=== PATIENT | male | born 1955 | race Caucasian/White ===

== ENCOUNTER 2024-10-20 08:13 | Inpatient (IN) | payer OTHER ==
--- NOTE | 2024-10-13 15:01 | ELECTROCARDIOGRAPH REPORT ---
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
[2024-10-13 15:57] LABS: BILIRUBIN,URINE NEGATIVE (Neg); CLARITY,URINE SLIGHTLY CLOUDY (Clear); COLOR,URINE YELLOW (Yellow); GLUCOSE, URINE NEGATIVE (Neg); KETONES,URINE NEGATIVE (Neg); LEUKOCYTE ESTERASE ,URINE NEGATIVE (Neg); NITRITES, URINE POSITIVE (Neg); OCCULT BLOOD,URINE SMALL (Neg); PROTEIN,URINE NEGATIVE (Neg)
[2024-10-13 15:59] LABS: BASOPHILS # (AUTO) 0.1 X10'3 (0-0.2); EOSINOPHILS # (AUTO) 0.1 X10'3 (0-0.9); MEAN CORPUSCULAR HEMOGLOBIN 35.2 PG (27.0-31.0); MEAN CORPUSCULAR VOLUME 100.6 FL (78-98); MEAN PLATELET VOLUME 8.3 FL (7.4-10.4); MONOCYTES # (AUTO) 0.7 X10'3 (0-0.9); MONOCYTES % (AUTO) 11.8 % (2-12); NEUTROPHILS # (AUTO) 4.2 X10'3 (1.8-7.7); NEUTROPHILS % (AUTO) 68.2 % (42-75); PRE OP HEMATOCRIT 44.6 % (42.0-52.0); PRE OP HEMOGLOBIN 15.6 g/dL (14.0-17.9); PRE OP PLATELET COUNT 227 X10'3 (140-440); PRE OP WHITE BLOOD COUNT 6.2 10'3 (4.8-10.8); RED BLOOD COUNT 4.43 X10'6 (4.70-6.10); RED CELL DISTRIBUTION WIDTH 14.5 % (11.5-14.5)
--- NOTE | 2024-10-13 15:59 | RADIOLOGY REPORT ---
DI CHEST,TWO VIEWS CLINICAL HISTORY: PREOP COMPARISON: None TECHNIQUE: Frontal and lateral view of the chest was obtained FINDINGS: Lines and Tubes: None Lungs: No focal consolidation. Pleura: No effusion. No pneumothorax. Cardiomediastinal contours: Unremarkable Bones: No acute osseous abnormality. IMPRESSION: No acute cardiopulmonary disease.
[2024-10-13 16:02] LABS: UA COLLECTION TYPE CLN CATCH MIDSTREAM
[2024-10-13 16:04] LABS: BACTERIA,URINE 3+ /HPF (Neg); MUCUS STRANDS FEW /LPF (Neg); SQUAMOUS EPITHELIAL CELL,UR FEW /LPF (FEW)
[2024-10-13 16:14] LABS: PRE OP PROTIME 10.5 SECONDS (9.0-12.0)
[2024-10-13 16:40] LABS: ALBUMIN 3.9 G/DL (3.4-5.0); ALBUMIN/GLOBULIN RATIO 1.2 (1.1-1.5); ALKALINE PHOSPHATASE 110 IU/L (46-116); BLOOD UREA NITROGEN 14 MG/DL (7-18); BUN/CREATININE RATIO 16.5 (10.0-20.0); CALCIUM 8.8 MG/DL (8.5-10.1); CHLORIDE 107 MMOL/L (99-107); CREATININE 0.85 MG/DL (0.60-1.10); PRE OP ALT 38 U/L (30-65); PRE OP ANION GAP 8 (8-16); PRE OP AST 25 U/L (10-37); PRE OP BILIRUB, TOTAL 0.8 MG/DL (0.0-1.0); PRE OP GLUCOSE 87 MG/DL (70-104); PRE OP POTASSIUM 4.6 MMOL/L (3.4-5.1); PRE OP SODIUM 144 MMOL/L (135-145); TOTAL CARBON DIOXIDE 29.3 MMOL/L (24-32); TOTAL PROTEIN 7.2 G/DL (6.4-8.2); eGFR 89 ML/MIN
[2024-10-13 17:11] LABS: HEMOGLOBIN A1C 5.3 % (4.5-6.2)
[2024-10-20] VITALS (29 sets, daily range): BP systolic 114–171; BP diastolic 72–106; PULSE 55–112; RESP 10–25; TEMP 97.6–98.6; O2SAT 91–98
[~2024-10-20] VITALS: Ht 175.3 cm; Wt 109.8 kg
[2024-10-20] MEDS: ceFAZolin 2gm/dext,iso 50mL 50 ML IV ONE (05:30)
[~2024-10-20 08:13] MED LIST: ATOR-429 PO; CHOL50004 PO; DABI150C PO; DICL100G59 TOP; FLUT16SP BOTHNARES; LIDO700A47 TOP; LORA10TA7 PO; LOSA-415 PO; MERC50TA2 PO; MUPI1OIN5 TOP; NALO4SPR22; OMEP40CA21 PO; PREG300C20 PO; REMICADE IV; TIRZ15PE SQ; TURMERIC/GINGER PO; VENL75CA61 PO; ondansetron/PF 4mg/2ml inj IV PRN
[2024-10-20] MEDS: famotidine 20mg tablet PO ONE (09:02)
[2024-10-20] MEDS: VANCOMYCIN/H2O 1.5g/300mL PB 300 ML IV ONE (09:03)
[2024-10-20] MEDS: ringers solution, lacted 1,000 ML IV SCH ×2 (09:03→10:25)
[2024-10-20] MEDS ORDERED: morphine 4 MG/ML inj SYRINge IV PRN (10:25)
[2024-10-20] MEDS ORDERED: labetalol 20mg/4ml (5mg/ml) syringe IV PRN ×2 (10:25→11:50)
[2024-10-20] MEDS ORDERED: ondansetron/PF 4mg/2ml inj IV PRN ×2 (10:25→11:50)
[2024-10-20] MEDS ORDERED: HYDROmorphone/PF 0.2 MG/ML SYRINGE IV PRN ×2 (10:25)
[2024-10-20] MEDS ORDERED: iohexol 350MG/ML 100ml bottle IV ONE (10:33)
[2024-10-20] MEDS ORDERED: sevoflurane 250ml liquid IH ONE (10:41)
[2024-10-20] MEDS ORDERED: midazolam 1 mg/ML 2ml injection ONE (10:46)
[2024-10-20] MEDS ORDERED: fentaNYL/PF 50MCG/1 ML 2ML syringe ONE (10:46)
[2024-10-20] MEDS ORDERED: propofol inj 20 ML IV ONE (11:46)
[2024-10-20] MEDS ORDERED: rocuronium 10mg/ml inj IV ONE (11:46)
[2024-10-20] MEDS ORDERED: neostigmine methylsulfate 1 MG/ML 10ml vial ONE (11:46)
[2024-10-20] MEDS ORDERED: HYDROcodone/acetaminophen 5mg/325mg tablet PO PRN (11:50)
[2024-10-20] MEDS ORDERED: potassium CL 10mEq/100ml bag 100 ML IV PRN (11:50)
[2024-10-20] MEDS ORDERED: pantoprazole 40mg Tablet.DR PO PRN (11:50)
[2024-10-20] MEDS ORDERED: potassium Cl 20mEq/100mL bag 100 ML IV PRN (11:50)
[2024-10-20] MEDS ORDERED: magnesium sulf-water 2g/50mL 50 ML IV PRN (11:50)
[2024-10-20] MEDS ORDERED: potassium Cl 20 mEq SR tablet PO PRN (11:50)
[2024-10-20] MEDS ORDERED: potassium Cl 40MEQ/1/2NS 520ml 520 ML IV PRN (11:50)
[2024-10-20] MEDS ORDERED: hydrALAZINE 20mg/ml inj. IV PRN (11:50)
[2024-10-20] MEDS ORDERED: docusate sod 100mg capsule PO PRN (11:50)
[2024-10-20] MEDS ORDERED: acetaminophen 325mg tablet PO PRN (11:50)
[2024-10-20] MEDS ORDERED: magnesium sulf-water 4G/100mL 100 ML IV PRN (11:50)
[2024-10-20] MEDS: normal saline 1000ml 1,000 ML IV SCH (11:50)
[2024-10-20] MEDS ORDERED: potassium Cl 40MEQ/270ML bag 250 ML IV PRN (11:50)
[2024-10-20] MEDS ORDERED: diphenhydrAMINE 25mg capsule PO PRN (11:50)
[2024-10-20] MEDS ORDERED: ALPRAZolam 0.25mg tablet PO PRN (11:50)
[2024-10-20] MEDS ORDERED: proCHLORperazine 10 MG/2 ml inj IV PRN (11:50)
[2024-10-20] MEDS ORDERED: glycopyrrolate 0.2mg/ml inj ONE (11:54)
[2024-10-20] MEDS ORDERED: heparin 1,000unit/ml 10ml vial 10 ML ONE (11:54)
--- NOTE | 2024-10-20 11:55 | OPERATIVE REPORT ---
Operative Report Providers to CC CC: Leonard Quintana MD; DELANEY CHAMBERS MD ~ Date of Procedure: Oct 20, 2024 Pre-Operative Diagnosis: Atrial Fibrillation with high bleeding risk Post-Operative Diagnosis SAME as PRE-Op Procedure Performed 1. Transseptal Puncture via NAOMI guidance 2. Left Atrial Appendogram 3. Left Atrial Appendage closure with 31mm Watchman FLX Pro Pro Device 4. Ultrasound guided access, right Femoral Vein Surgeon: Dixie Chambers MD Sack Keeper n/a Anesthesiologist: Forrest Lopez Type of Anesthesia: General Findings: Left Atrial appendage amenable to percutaneous closure. Complications None Prosthetics\\Implants used: 31mm Watchman Flx Pro Estimated Blood Loss: Minimal Specimen Removed: None Description of Procedure: The patient was brought to the clinical lab scientist in a fasting state. They underwent General anesthesia. Ultrasound was used to guide access to the right femoral vein where two aretha-cross Perclose devices were placed and upsized to an 8Fr sheath. Heparin was given to maintain an ACT over 250 seconds. An 0.035" wire was advanced into the SVC. The 8Fr sheath was then removed and the 8.5Fr VersaCross Transseptal sheath was advanced into the SVC. The RF wire was then advanced to the tip of the sheath/dilator. Using NAOMI guidance, appropriate position of the tip of the sheath was determined and using an energized wire tip, advanced into the left atrium. The sheath and dilator were then advanced over the wire into the left atrium. Over the wire, the Versacross sheath was removed and exchanged for the Watchman Sheath. The wire and dilator were then removed and exchanged for a 5Fr pigtail catheter which was placed into the left atrial appendage and an appendogram performed in the AKERS-Caudal position. There, ACT was confirmed to be therapeutic. The Watchman sheath was t hen advanced into the left atrial appendage over the pigtail catheter. Once appropriate position was determined, the pigtail was removed, the 31mm Watchman FLX device and delivery system were advanced into the tip of the sheath. The delivery system was advanced until an appropriate FLX ball was formed. The guide was then retracted and the Watchman device was unsheathed will full deployment in the appendage. Repeat imaging confirmed a slightly proximal placement of the device so it was recaptured and repositioned in the superior lobe of the appendage where it was again unsheathed. Next, PASS criteria was performed confirming adequate positioning and anchoring(using a tug-test), sizing showing adequate compression, and no significant leak around the device. Another Appendogram was performed confirming placement. The device was then released from the delivery system. The guide and delivery system were removed and the perclose tied as well as the [id number]-[id number]-[id number] suture, ensuring adequate hemostasis. Mean LA Presssure: 25mmHg Contrast: 20cc ACT: 233(+1k)s Device Compression: 23-30% RESULTS: 1. Successful Left-Atrial Appendage closure with a 31mm Watchman FLX Pro device 2. Right Femoral Vein access, closed with Perclose x 2 and Guqshb-oo-Kgfhe suture 3. Resume Pradaxa 150mg BID x 45days with repeat imaging at that time. If sealed without evidence of device related thrombosis, can stop OAC and start ASA 81mg QD indefinitely, plavix 75mg QD x 6 months. They will be watched in the recovery area until stable, then transferred to the telemetry at that time. DIXIE CHAMBERS MD Oct 20, 2024 11:55
[2024-10-20] MEDS ORDERED: LIDOcaine 5% patch TP PRN (12:00)
--- NOTE | 2024-10-20 12:28 | ELECTROCARDIOGRAPH REPORT ---
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 SERGE Lobo Measurements Intervals [place] Rate: 59 P: 0 [place]: 0 QRS: 60 QRSD: 89 T: 53 QT: 420 QTc: 416 Interpretive Statements Atrial fibrillation Low voltage, extremity leads Electronically Signed On 10-21-2024 19:15:[address] SERGE Lobo Please click the below link to view image of tracing.
[2024-10-20] MEDS: hydrALAZINE 20mg/ml inj. IV PRN (14:04)
[2024-10-20] MEDS: morphine 2 MG/ML inj. syringe IV PRN (14:43)
[2024-10-20] MEDS: sod chloride 0.9% 10ml flush syringe IV SCH (16:50)
[2024-10-20] MEDS: ceFAZolin 1GM/D5W- ADD-VANTAGE 50 ML IV SCH (16:50)
--- NOTE | 2024-10-20 18:23 | CARDIOLOGY REPORT ---
APPROVED REPORT EXAM: Focused, limited intraprocedural transesophageal 2D, spectral and color flow Doppler echocardio gram during WATCHMAN deployment. 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 Overall systolic function is normal. LVEF is 60%. RIGHT VENTRICLE RV is normal size and function. ATRIA LA appears severely dilated. Windsock (irregular) shaped appendage without thrombus detected. Promine nt thickened calcified ridge observed. Left upper pulmonary vein identified. Intact, but thin / mobil e interatrial septum. Width / length averages are: 0degr 20 x26 mm; 45degr 19 x 28 mm; 90degr 19 x 27 mm; 135degr 19 x 22 mm. Loop 22: Septal tenting visualized with RF atrial septal puncture performed. Wire in LA. Pigtail advanced to tip of appendage. LA pressure is measured at: 25 mmHG. Appendagram p erformed. Loop 27 : Flex ball deployed. 31 mm Watchman FLX device, PASS criteria attempted, unsuccess fully. Loop 28: Recapture, reposition, and redeployment. Loop 30: Successful "TUG" test performed. P ASS reassessed. Optimal compression obtained - shoulder to shoulder measurement is: 21.0 mm. Loop 42: Device released. Patent interatrial septum with small residual left to right shunt (s/p transseptal puncture). Successfully occluded left atrial appendage with Watchman device well positioned without t hrombus. No residual flow around device detected. No pericardial effusion post-implant. Right atrium is moderately dilated. PERICARDIUM Normal pericardium. No effusion. CONCLUSION Normal LV size and wall thickness. Overall systolic function is normal. LVEF is 60%. RV is normal siz e and function. LA appears severely dilated. Windsock (irregular) shaped appendage without thrombus d etected. Prominent thickened calcified ridge observed. Left upper pulmonary vein identified. Intact, but thin / mobile interatrial septum. Width / length averages are: 0degr 20 x26 mm; 45degr 19 x 28 mm ; 90degr 19 x 27 mm; 135degr 19 x 22 mm. Loop 22: Septal tenting visualized with RF atrial septal pun cture performed. Wire in LA. Pigtail advanced to tip of appendage. LA pressure is measured at: 25 mmH G. Appendagram performed. Loop 27 : Flex ball deployed. 31 mm Watchman FLX device, PASS criteria atte mpted, unsuccessfully. Loop 28: Recapture, reposition, and redeployment. Loop 30: Successful "TUG" t est performed. PASS reassessed. Optimal compression obtained - shoulder to shoulder measurement is: 2 1.0 mm. Loop 42: Device released. Patent interatrial septum with small residual left to right shunt ( s/p transseptal puncture). Successfully occluded left atrial appendage with Watchman device well posi tioned without thrombus. No residual flow around device detected. No pericardial effusion post-implan t. Right atrium is moderately dilated. Normal pericardium. No effusion. Conclusion Normal LV size and wall thickness. Overall systolic function is normal. LVEF is 60%. RV is normal size and function. LA appears severely dilated. Windsock (irregular) shaped appendage without thrombus detected. Promine nt thickened calcified ridge observed. Left upper pulmonary vein identified. Intact, but thin / mobi le interatrial septum. Width / length averages are: 0degr 20 x26 mm; 45degr 19 x 28 mm; 90degr 19 x 27 mm; 135degr 19 x 22 mm. Loop 22: Septal tenting visualized with RF atrial septal puncture perfo rmed. Wire in LA. Pigtail advanced to tip of appendage. LA pressure is measured at: 25 mmHG. Appen dagram performed. Loop 27 : Flex ball deployed. 31 mm Watchman FLX device, PASS criteria attempte d, unsuccessfully. Loop 28: Recapture, reposition, and redeployment. Loop 30: Successful "TUG" test performed. PASS reassessed. Optimal compression obtained - shoulder to shoulder measurement is: 21.0 mm. Loop 42: Device released. Patent interatrial septum with small residual left to right shunt (s /p transseptal puncture). Successfully occluded left atrial appendage with Watchman device well posi tioned without thrombus. No residual flow around device detected. No pericardial effusion post-impl ant. Right atrium is moderately dilated. Normal pericardium. No effusion.
[2024-10-20] MEDS: vancomycin/NS 1 GM ADD-VANTAGE 250 ML IV SCH (19:55)
[2024-10-20] MEDS: pregabalin 75mg capsule PO SCH (19:55)
[2024-10-20] MEDS ORDERED: VANCOMYCIN 1GM 200ML H20 (PEG) 200 ML IV SCH (20:00)
[2024-10-21 02:00] VITALS: BP 145/90; PULSE 79; RESP 19; TEMP 97.8; O2SAT 98
[2024-10-21 06:00] VITALS: BP 146/91; PULSE 69; RESP 15; TEMP 97.6; O2SAT 94
[2024-10-21 06:06] LABS: BASOPHILS % (AUTO) 0.2 % (0-1); EOSINOPHILS % (AUTO) 0 % (0-6); HEMATOCRIT 43.8 % (42.0-52.0); HEMOGLOBIN 15.4 g/dl (14.0-17.9); LYMPHOCYTES # (AUTO) 0.5 X10'3 (1.1-4.8); LYMPHOCYTES % (AUTO) 6.2 % (21-51); MEAN CORPUSCULAR HEMOGLOBIN 35.5 PG (27.0-31.0); MEAN CORPUSCULAR HGB CONC 35.1 g/dL (33.0-36.5); MEAN CORPUSCULAR VOLUME 101.2 FL (78-98); MEAN PLATELET VOLUME 8.4 FL (7.4-10.4); MONOCYTES # (AUTO) 0.4 X10'3 (0-0.9); MONOCYTES % (AUTO) 4.7 % (2-12); NEUTROPHILS # (AUTO) 7.4 X10'3 (1.8-7.7); NEUTROPHILS % (AUTO) 88.9 % (42-75); PLATELET COUNT 201 X10'3 (140-440); RED BLOOD COUNT 4.33 X10'6 (4.70-6.10); RED CELL DISTRIBUTION WIDTH 13.7 % (11.5-14.5); WHITE BLOOD COUNT 8.3 X10'3 (4.5-11.0)
[2024-10-21 06:10] LABS: PROTHROMBIN TIME 10.7 SECONDS (9.0-12.0)
[2024-10-21 06:29] LABS: ALANINE AMINOTRANSFERASE 23 U/L (12-78); ALBUMIN 3.4 G/DL (3.4-5.0); ALKALINE PHOSPHATASE 81 IU/L (46-116); ANION GAP 9 (8-16); ASPARTATE AMINO TRANSFERASE 23 U/L (10-37); BILIRUBIN,TOTAL 0.8 MG/DL (0.1-1.0); BLOOD UREA NITROGEN 15 MG/DL (7-18); CALCIUM 8.8 MG/DL (8.5-10.1); CHLORIDE 108 MMOL/L (99-107); CREATININE 0.94 MG/DL (0.60-1.10); GLUCOSE 120 MG/DL (70-104); MAGNESIUM 2.1 MG/DL (1.5-2.4); PRO BRAIN NATRIURETIC PEPTIDE 654 PG/ML (0-125); SODIUM 143 MMOL/L (135-145); TOTAL CARBON DIOXIDE 26.3 MMOL/L (24-32); TOTAL PROTEIN 6.7 G/DL (6.4-8.2); eCRCL 73 ML/MIN; eGFR 79 ML/MIN
--- NOTE | 2024-10-21 06:37 | ELECTROCARDIOGRAPH REPORT ---
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 SERGE Lobo Measurements Intervals [place] Rate: 67 P: 0 [place]: 0 QRS: 15 QRSD: 88 T: 28 QT: 418 QTc: 442 Interpretive Statements Atrial fibrillation Low voltage, extremity leads Electronically Signed On 10-21-2024 19:16:[address] SERGE Lobo Please click the below link to view image of tracing.
[2024-10-21] MEDS: pantoprazole 40mg Tablet.DR PO SCH (07:24)
[2024-10-21] MEDS: venlafaxine XR 75mg capsule (Q24H) PO SCH (07:24)
[2024-10-21] MEDS: losartan 25mg tablet PO SCH (07:27)
[2024-10-21] MEDS: cholecalciferol (vitamin D3) 1,000 unit (25mcg) tablet PO SCH (07:27)
[2024-10-21] MEDS: dabigatran 150mg capsule PO SCH (07:28)
[2024-10-21] MEDS: atorvastatin 20mg tablet PO SCH (07:28)
[2024-10-21] MEDS: loratadine 10mg tablet PO SCH (07:33)
--- NOTE | 2024-10-21 08:54 | RADIOLOGY REPORT ---
CHEST RADIOGRAPH Indication: s/p Watchman Technique: Single frontal view of the chest was obtained COMPARISON: None FINDINGS: Lines and Tubes: None Lungs: Clear Pleura: No effusion. No pneumothorax. Cardiomediastinal contours: Watchman device. Bones: Unremarkable IMPRESSION: No acute disease.
--- NOTE | 2024-10-21 10:32 | CARDIOLOGY REPORT ---
APPROVED REPORT EXAM: Limited 2D, Doppler, and color-flow Echocardiogram. Patient Location: [facility] Blood Pressure: 146/91 mmHg Heart Rate: 60's bpm Rhythm: Atrial Fibrillation Indications One day follow up Watchman closure device 31 mm WATCHMAN FLX KUNAL CLOSURE DEVICE Superintendent Measurement is Julio Chambers MD. Previous echo 10/20/24 [facility] 60% EF ; small residual left to right shunt (s/p transseptal puncture). M-Mode Dimensions MV EPSS 0.5 (<0.5cm) Tricuspid Valve TR P. Velocity 253 cm/s RAP ESTIMATE 10 mmHg TR Peak Gr. 26 mmHg RVSP 36 mmHg LEFT VENTRICLE LV appears normal in size and thickness. Overall systolic function appears normal. LVEF is 60%. RIGHT VENTRICLE RV appears normal in size and function. RVSP is estimated at 36 mmHG. ATRIA LA appears moderately dilated. Mobile interatrial septum with (small) L to R shunt s/p transseptal pu ncture by color and spectral Doppler. MITRAL VALVE MV is thickened with mild annular thickening. Trace mitral regurgitation. TRICUSPID VALVE The tricuspid valve is normal in structure. Trace tricuspid regurgitation. GREAT VESSELS The IVC is normal in size and collapses >50% with inspiration. PERICARDIUM There is no pericardial effusion. Other Information Study Quality: Adequate Conclusion LV appears normal in size and thickness. Overall systolic function appears normal. LVEF is 60%. RV appears normal in size and function. RVSP is estimated at 36 mmHG. LA appears moderately dilated. Mobile interatrial septum with (small) L to R shunt s/p transseptal p uncture by color and spectral Doppler. MV is thickened with mild annular thickening. Trace mitral regurgitation. The tricuspid valve is normal in structure. Trace tricuspid regurgitation. There is no pericardial effusion.
[2024-10-21 11:00] VITALS: BP 105/54; PULSE 68; RESP 17; TEMP 97.8; O2SAT 97
[2024-10-21] MEDS ORDERED: CIPR250S2 PO (14:55)
[2024-10-21 14:57] VITALS: BP 146/77; PULSE 77; RESP 16; TEMP 97.4; O2SAT 95
--- NOTE | 2024-10-21 15:17 | DISCHARGE SUMMARY ---
Discharge Summary Providers to CC CC: Leonard Quintana MD; DELANEY LIU MD ~ Discharge Summary Admission Diagnosis: Atrial Fibrillation with high bleeding risk Hospital Course DATE OF ADMISSION: 10/20/2024 DATE OF DISCHARGE: 10/21/2024 Discharge Diagnosis\Comment: Status post left atrial appendage occlusion Operations\Procedures: 1. Transseptal Puncture via NAOMI guidance 2. Left Atrial Appendogram 3. Left Atrial Appendage closure with 31mm Watchman FLX Pro Pro Device 4. Ultrasound guided access, right Femoral Vein Consultants: None Complications: None Condition on DC: Stable New Medications: Ciprofloxacin (Cipro) 250 Mg/5 Ml Katie.mc.rec 1 TAB PO Q12H for UTI for 5 Days, #10 TAB 0 Refills Continued Medications: Atorvastatin Calcium* (Lipitor*) 80 Mg Tablet 1 TAB PO DAILY Cholecalciferol (Vitamin D3) (Vitamin D3) 125 Mcg (5000 Unit) Capsule 1 CAP PO DAILY for 30 Days, #30 CAP 0 Refills Dabigatran (PRADAXA capsule) 150 Mg Capsule 1 CAP PO Q12H Diclofenac Sodium (Diclofenac Sodium) 1 % Gel..gram. 2 GM TOP Q6H PRN for pain Fluticasone Propionate (Fluticasone Propionate) 50 Mcg/Actuation [place].susp 1 SPRAYS BOTHNARES DAILY Lidocaine (Lidocaine) 5 % Adh..patch 1 PATCH TOP DAILY PRN for pain Loratadine (Loratadine) 10 Mg Tablet 1 TAB PO DAILY for allergy symptoms Losartan Potassium* (Cozaar*) 25 Mg Tablet 1 TAB PO DAILY Mercaptopurine (Mercaptopurine) 50 Mg Tablet 1 TAB PO DAILY Mupirocin (Mupirocin) 2 % Oin.pf.jenifer 1 APPLIC TOP Q8H PRN for SKIN INFECTIONS for 5 Days, #15 GM 0 Refills apply to affected area(s) Naloxone HCl (Naloxone HCl) 4 Mg/Actuation [place] 1 SPR NA PRN for SUSPECTED OPIOD OVERDOSE Omeprazole (Prilosec) 40 Mg Capsule 1 CAP PO DAILY Pregabalin (Pregabalin) 300 Mg Capsule 1 CAP PO Q12H MDD 2 Capsule(s) for 30 Days, #60 CAP 0 Refills [Remicade] () Unknown Strength 1 UNIT IV Q8WEEK Tirzepatide (Mounjaro) 15 Mg/0.5 Ml Pen.injctr 15 MG SQ QWEEKLY [Turmeric/Carissa] () Unknown Strength 3 CAP PO DAILY Venlafaxine Hcl (Venlafaxine Hcl Er) 75 Mg Cap.sr.24h 1 CAP PO DAILY for 30 Days, #30 CAP 0 Refills Discharge Summary: 68yo man with HTN, HLD, chronic pain, GERD, Afib and high bleeding risk admitted after elective Watchman procedure. Underwent placement of 27mm Watchman Flx Pro without issues. --Resume Pradaxa 150mg BID x 45days with repeat imaging at that time. If sealed without evidence of device related thrombosis, can stop OAC and start ASA 81mg QD indefinitely, plavix 75mg QD x 6 months. --+Urine culture with increased urinary frequency. Cipro 500mg BID x 5 days *Problems/Diagnosis: (1) Atrial fibrillation (2) UTI (urinary tract infection) Total Time Spent on D/C: Up to 30 Minutes Counseling Services Smoking & Tobacco Cessation: N/A DIXIE LIU MD Oct 21, 2024 15:17
== END 2024-10-21 16:21 | disposition home or self-care (01) | DRG 274 ==
LOC: PAS IN 08:13 → PCU 3S 15:48
PROVIDERS: ADMIT Student in an Organized Health Care Education/Training Program; ATTEND Student in an Organized Health Care Education/Training Program
PROC: B24BZZ4 Ultrasonography of Heart with Aorta, Transesophageal (ICD-10-PCS; 2024-10-20)
PROC: 02L73DK Occlusion of Left Atrial Appendage with Intraluminal Device, Percutaneous Approach (ICD-10-PCS; principal; 2024-10-20 10:41)
DX: I48.91 Unspecified atrial fibrillation (principal); Z00.6 Encounter for examination for normal comparison and control in clinical research program; N39.0 Urinary tract infection, site not specified; I10 Essential (primary) hypertension; E78.5 Hyperlipidemia, unspecified; K21.9 Gastro-esophageal reflux disease without esophagitis; Z79.01 Long term (current) use of anticoagulants; Z88.2 Allergy status to sulfonamides; Z88.1 Allergy status to other antibiotic agents
CPT/HCPCS: 33340; 36415; 71045; 71046; 76937; 80053; 81001; 82948; 83036; 83735; 83880; 85025; 85347; 85610; 85730; 86885; 86900; 86901; 86920; 87077; 87081; 87088; 87186; 93005; 93308; 93312; 93325; A4615; A4618; A6258; A6402; A6449; A6590; C1758; C1760; C1889; C1894; G0378; J0360; J0690; J1100; J1644; J2250; J2270; J2405; J2704; J2710; J3010; J3370; J3372; J3490; J7030; J7120; Q9967

== ENCOUNTER 2024-12-06 10:47 | Day surgery (SDC) | payer OTHER ==
[~2024-12-06] VITALS: Ht 175.3 cm; Wt 113.1 kg
[~2024-12-06 10:47] MED LIST changes: +CIPR250S2 PO; -ondansetron/PF 4mg/2ml inj IV PRN
[2024-12-06 11:45] VITALS: BP 136/72; PULSE 59; RESP 16; TEMP 97.8; O2SAT 96
[2024-12-06] MEDS ORDERED: MIDAZolam 1mg/ml 10ml vial IV ONE (11:50)
[2024-12-06] MEDS ORDERED: fentaNYL/PF 50MCG/1 ML 2ML syringe IV ONE (11:50)
[2024-12-06] MEDS: normal saline 1000ml 1,000 ML IV SCH (12:00)
[2024-12-06 12:11] LABS: MEAN PLATELET VOLUME 8.2 FL (7.4-10.4); RED CELL DISTRIBUTION WIDTH 14.0 % (11.5-14.5)
[2024-12-06] MEDS ORDERED: midazolam 1 mg/ML 2ml injection ONE ×2 (12:13)
[2024-12-06] MEDS ORDERED: fentaNYL/PF 50MCG/1 ML 2ML syringe ONE (12:13)
[2024-12-06 12:21] LABS: INR 1.1 INR
[2024-12-06 12:35] LABS: CREATININE 1.15 MG/DL (0.60-1.10); TOTAL CARBON DIOXIDE 28.1 MMOL/L (24-32); eCRCL 59 ML/MIN; eGFR 63 ML/MIN
[2024-12-06 13:22] VITALS: BP 143/83; PULSE 60; RESP 13; O2SAT 93
[2024-12-06] MEDS ORDERED: CLOP75TA34 PO (13:24)
[2024-12-06] MEDS ORDERED: ASPI-611 PO (13:24)
[2024-12-06 13:37] VITALS: BP 129/74; PULSE 53; RESP 11; O2SAT 95
[2024-12-06 14:02] VITALS: BP 142/71; PULSE 54; RESP 13; O2SAT 93
--- NOTE | 2024-12-07 06:10 | CARDIOLOGY REPORT ---
APPROVED REPORT EXAM: Focused, limited transesophageal echocardiogram with color flow Doppler. 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 Overall systolic function is normal. LVEF is 60%. RIGHT VENTRICLE RV is normal size and function. ATRIA LA is severely dilated. Intact interatrial septum with tiny L to R shunt s/p transseptal puncture. Le ft upper pulmonary vein identified. Successfully occluded left atrial appendage with well visualized Watchman device well positioned without thrombus. No residual flow detected around device in all view s. GREAT VESSELS Ascending aorta is normal in size with mild atheromatous debris. PERICARDIUM Normal pericardium. No effusion. Prominent anterior epicardial fat pad. CONCLUSION Normal LV size and wall thickness. Overall systolic function is normal. LVEF is 60%. RV is normal siz e and function. LA is severely dilated. Intact interatrial septum with tiny L to R shunt s/p transsep marielos puncture. Left upper pulmonary vein identified. Successfully occluded left atrial appendage with well visualized Watchman device well positioned without thrombus. No residual flow detected around de vice in all views. Ascending aorta is normal in size with mild atheromatous debris. Normal pericardiu m. No effusion. Prominent anterior epicardial fat pad. Conclusion Normal LV size and wall thickness. Overall systolic function is normal. LVEF is 60%. RV is normal size and function. LA is severely dilated. Intact interatrial septum with tiny L to R shunt s/p transseptal puncture. Left upper pulmonary vein identified. Successfully occluded left atrial appendage with well visualiz ed Watchman device well positioned without thrombus. No residual flow detected around device in all views. Ascending aorta is normal in size with mild atheromatous debris. Normal pericardium. No effusion. Prominent anterior epicardial fat pad.
== END 2024-12-06 14:00 | disposition home or self-care (01) ==
LOC: SSTAY O 10:47
PROVIDERS: ATTEND Student in an Organized Health Care Education/Training Program
DX: I48.91 Unspecified atrial fibrillation (principal); I10 Essential (primary) hypertension; E78.5 Hyperlipidemia, unspecified; G47.33 Obstructive sleep apnea (adult) (pediatric); Z86.73 Personal history of transient ischemic attack (TIA), and cerebral infarction without residual deficits; Z95.818 Presence of other cardiac implants and grafts; Z88.1 Allergy status to other antibiotic agents
CPT/HCPCS: 36415; 80053; 85025; 85610; 93312; 93325; J2250; J3010; J7030; 99152; 99153